=== PATIENT | male | born 1985 | race American Indian/Alaskan Native ===

== ENCOUNTER 2019-08-05 22:49 | Emergency (ER) | payer SELFPAY ==
[2019-08-05 23:21] VITALS: BP 130/74
--- NOTE | 2019-08-05 23:40 | XRay Report ---
LEFT FOOT 3 VIEWS INDICATION / CLINICAL INFORMATION: Laceration great toe COMPARISON: None available. FINDINGS: BONES / JOINT(S): No acute fracture or subluxation. No significant arthritis. SOFT TISSUES: There is a bandage overlying the great toe. I see no evidence of a radiopaque foreign b froilan. ADDITIONAL FINDINGS: None. Signer Name: Husam Chambers MD Signed: 08/05/2019 11:35 PM Workstation Name: [id number]
--- NOTE | 2019-08-06 | Emergency Department Report ---
ED Laceration HPI - HPI Chief Complaint: Wound/Laceration Stated Complaint: CUT OPEN BIG TOE ON GLASS Time Seen by Provider: 08/05/19 23:56 Occurred When: Today (About 9 to 9:30 PM tonight) Location: Lower Extremity (Left great toe) Severity: moderate (5/10 worse with movement and palpation) Tetanus Status: Not up to Date Laceration Symptoms: Yes Pain (5/10 to left great toe), No Foreign Body Sensation, No Numbness, No Weakness Other History: Patient reports that he accidentally hit his left foot a great toe on a piece of tile last today. Tetanus vaccine is not up-to-date. He said it was bleeding a lot that is why he came to the emergency room. Report pain 5/10 that is aching and sharp. Worse with movement and touch and better with rest. No medication taken prior to coming to the emergency room. Patient denies any medical problems. Denies any numbness or tingling to extremities. This happened betwee 9 and 9:30 PM tonight. ED Review of Systems ROS: Stated complaint: CUT OPEN BIG TOE ON GLASS Other details as noted in HPI Constitutional: denies: chills, fever Respiratory: denies: cough, shortness of breath, wheezing Cardiovascular: denies: chest pain, palpitations, edema, syncope Gastrointestinal: denies: abdominal pain, nausea, vomiting, diarrhea Musculoskeletal: arthralgia. denies: back pain, joint swelling, myalgia Skin: other (Cut to left great toe) Neurological: denies: numbness, paresthesias ED Past Medical Hx - Past Medical History Previous Medical History?: No - Surgical History Past Surgical History?: No - Family History Family history: no significant - Social History Smoking Status: Never Smoker Substance Use Type: Marijuana - Medications Home Medications: Home Medications Medication Instructions Recorded Confirmed Last Taken Type Clindamycin [Clindamycin CAP] 300 mg PO Q8H 30 Days #21 capsule 08/06/19 Unknown Rx Ibuprofen [Motrin] 600 mg PO Q8H PRN #12 tablet 08/06/19 Unknown Rx Laceration Physical Exam - Exam General: Vital signs noted. No distress. Alert and acting appropriately. 33-year-old male well-nourished well-developed in no acute distress and nontoxic in appearance. Wound Length (cm): 1 (Already hemostased) Laceration Location: Lower Extremity (Right great toe plantar aspect distally) Full Body Front + Back: 1 - Left great toe, plantar aspect distally. States superficial scratch jason that is already hemostased tender to palpate. Pain with movement but no bony deformity. Wound cleansed with Betadine and normal saline and Neosporin oi ntment followed by sterile gauze dressing. Tetanus shot updated Laceration Exam: Yes Normal Distal CMS (No cce. + 2 pulses in all extremities, no neurovascular compromise), No Foreign Body, No Exposed Tendon, Vessel, or Nerve, No Tendon Injury ED Course Vital Signs 08/05/19 23:02 Temperature 98.6 F Pulse Rate 79 Respiratory 18 Rate Blood Pressure 130/74 O2 Sat by Pulse 98 Oximetry - Reevaluation(s) Reevaluation #1: 08/06/19 00:21 Patient given Motrin 600 mg p.o., Tylenol 3 2 tablets p.o. with relief of pain. Boostrix 0.5 cc to update tetanus. Wound care to left great toe. Area cleansed with iodine and normal saline and Neosporin ointment placed aside foll owed by sterile dry dressing. Patient tolerated well. X-ray is negative findings for foreign body or fracture or dislocation 08/06/19 00:25 ED Medical Decision Making - Radiology Data Radiology results: report reviewed X-ray three-view left foot dictated by radiologist and report reviewed by myself. No acute findings Findings [address] [address] XRay Report Signed Patient: KASSIDY WEEMS MR#: [id number] : 1985 Acct:[id number] Age/Sex: 33 / M ADM Date: 08/05/19 Loc: ED Attending Dr: Ordering Physician: LAYLA LISA MD Date of Service: 08/05/19 Procedure(s): XR foot 3+V LT Accession Number(s): [id number] cc: LAYLA LISA MD Fluoro Time In Minutes: LEFT FOOT 3 VIEWS INDICATION / CLINICAL INFORMATION: Laceration great toe COMPARISON: None available. FINDINGS: BONES / JOINT(S): No acute fracture or subluxation. No significant arthritis. SOFT TISSUES: There is a bandage overlying the great toe. I see no evidence of a radiopaque foreign body. ADDITIONAL FINDINGS: None. Signer Name: Husam Chambers MD Signed: 08/05/2019 11:35 PM Workstation Name: [id number] Transcribed By: RT Dictated By: Husam Chambers MD Electronically Authenticated By: Husam Chambers MD Signed Date/Time: 08/05/192334 DD/ 33 TD/TT: - Medical Decision Making 33-year-old male here after injuring his left great toe on glass tile. X-ray report dictated by radiologist and report reviewed by myself. In no fracture, dislocation or foreign body noted. Physical findings for left great toe tender to palpate and pain with movement. No bony deformity. Noted scratch farrar to left great toe on plantar aspect. Area cleansed with Betadine and normal saline and Neosporin ointment placed followed by dry dressing. Patient received Boostrix to update tetanus vaccine. Pain controlled with Motrin and Tylenol. Patient updated on his diagnosis and x-ray reports and he voiced understanding. Patient discharged home in stable condition with prescription for Motrin and clindamycin - Differential Diagnosis Fracture VS dislocation, MSK pain Critical care attestation.: If time is entered above; I have spent that time in minutes in the direct care of this critically ill patient, excluding procedure time. ED Disposition Clinical Impression: Arthralgia of left foot Abrasion of toe of left foot Qualifiers: Encounter type: initial encounter Qualified Code(s): S90.415A - Abrasion, left lesser toe(s), initial encounter Disposition: TO HOME OR SELFCARE Is pt being admited?: No Does the pt Need Aspirin: No Condition: Stable Instructions: Arthralgia (ED), Abrasion (ED) Additional Instructions: Please keep affected area clean and dry Take medication as prescribed Follow-up with primary care physician in 3 to 5 days If condition worsen, return to the emergency room Referrals: PRIMARY CARE, [Referring] - 3-5 Days Forms: Work/School Release Form(ED)
[2019-08-06] MEDS ORDERED: IBUPROFEN 600 MG TAB PO ONE (00:02)
[2019-08-06] MEDS ORDERED: TETANUS,DIPH,PERTUSS(ACELL) VACCINE 0.5 ML SYRINGE IM ONE (00:02)
[2019-08-06] MEDS ORDERED: ACETAMINOPHEN W/CODEINE 300-30 MG TAB PO ONE (00:02)
[2019-08-06] MEDS ORDERED: NEOMY 3.5 MG/BACIT 400 UNITS/POLY B 5000 UNITS/GM OINT PACKET TP ONE (00:03)
== END 2019-08-06 00:44 | disposition home or self-care (01) ==
LOC: ED 22:49
DX: S90.415A Abrasion, left lesser toe(s), initial encounter (principal); F12.10 Cannabis abuse, uncomplicated; X58.XXXA Exposure to other specified factors, initial encounter; Y93.89 Activity, other specified; Y92.89 Other specified places as the place of occurrence of the external cause; Y99.8 Other external cause status
CPT/HCPCS: 90471; 90715; A6250

== ENCOUNTER 2019-09-05 16:13 | Emergency (ER) | payer OTHER ==
[2019-09-05 16:56] VITALS: BP 121/76
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
[2019-09-05] MEDS ORDERED: IBUPROFEN 600 MG TAB PO ONE (19:39)
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
== END 2019-09-05 20:13 | disposition home or self-care (01) ==
LOC: ED 16:13
DX: S80.02XA Contusion of left knee, initial encounter (principal); F17.200 Nicotine dependence, unspecified, uncomplicated; F12.10 Cannabis abuse, uncomplicated; Z21 Asymptomatic human immunodeficiency virus [HIV] infection status; Z79.899 Other long term (current) drug therapy; Z88.0 Allergy status to penicillin; V49.49XA Driver injured in collision with other motor vehicles in traffic accident, initial encounter; Y93.89 Activity, other specified; Y92.488 Other paved roadways as the place of occurrence of the external cause; Y99.8 Other external cause status
CPT/HCPCS: 99283